=== PATIENT | male | born 1970 | race Caucasian/White ===

== ENCOUNTER 2017-02-21 23:24 | Emergency (ER) | payer OTHER | END 2017-02-22 04:45 | disposition home or self-care (01) | LOC: CED 23:24 | DX: F10.129 Alcohol abuse with intoxication, unspecified (principal); E11.9 Type 2 diabetes mellitus without complications; I10 Essential (primary) hypertension; F20.9 Schizophrenia, unspecified; F17.210 Nicotine dependence, cigarettes, uncomplicated; F31.9 Bipolar disorder, unspecified; Z88.0 Allergy status to penicillin | CPT/HCPCS: 36415; 99283; G0480 ==

== ENCOUNTER 2017-06-09 10:35 | Emergency (ER) | payer OTHER ==
[2017-06-10] MEDS ORDERED: GABAPENTIN800 MG PO (01:28)
[2017-06-10] MEDS ORDERED: ALBUTEROL20 ml (01:29)
[2017-06-10] MEDS ORDERED: ACCU-CHEK1 EAC2 (01:30)
[2017-06-10] MEDS ORDERED: MOTRIN600 MG PO (01:30)
== END 2017-06-09 11:24 | disposition left against medical advice (07) ==
LOC: CED 10:35
DX: R41.82 Altered mental status, unspecified (principal); E11.9 Type 2 diabetes mellitus without complications; I10 Essential (primary) hypertension; F31.9 Bipolar disorder, unspecified; F17.200 Nicotine dependence, unspecified, uncomplicated; Z88.0 Allergy status to penicillin
CPT/HCPCS: 99284

== ENCOUNTER 2017-06-09 12:04 | Emergency (ER) | payer OTHER ==
--- NOTE | ~2017-06-09 | CT71 ---
[facility] A Service [facility] RADIOLOGY TEXT RESULTS PATIENT: CHADD REAVES LOCATION: [facility] : 74 UNIT #: [id number] AGE: [address]: Michel Aceves DO SEX: M ORDER DR: [id number] [facility]. [place], [place] [address] [id number] MR#: [id number] Acc #: [id number] NAME: CHADD REAVES : 1970 SEX: M STUDY DATE/TIME: 06/09/2017 13:11 UNIT: [facility] ROOM: STUDY DESCRIPTION: CT Head Wo Contrast Attending Physician: Michel Aceves D.O. Ordering Physician: Michel Aceves D.O. Primary Care Physician: No Primary Care Physician MEDICAL IMAGING REPORT This report is preliminary unless electronic signature is present EXAM Head CT without contrast HISTORY Patient found down on the sidewalk today with complaint of diffuse headache. TECHNIQUE Axial images were obtained without contrast. This CT exam was performed with one or more of the following radiation dose reduction techniques: automatic exposure control, adjustment of mA and/or kV according to patient size, and iterative reconstruction. FINDINGS Ventricular size and configuration are normal. There is no evidence of acute infarct or hemorrhage. There are no extra-axial fluid collections. No mass lesion or mass effect is seen. There are no skull fractures. IMPRESSION Normal noncontrast head CT. Dictated by... Collin Jimenez M.D. THIS IS AN ELECTRONICALLY VERIFIED REPORT Collin Jimenez M.D. at 06/10/2017 9:36 AM SIMI/laura TD: 06/09/2017 18:13 JOB #: [id number] MEDICAL IMAGING REPORT [facility] A Service [facility] RADIOLOGY TEXT RESULTS PATIENT: CHADD REAVES LOCATION: [facility] : 74 UNIT #: [id number] AGE: [address]: Hottman,Michel M DO SEX: M ORDER DR: Page 1 of 1 COPY
--- NOTE | ~2017-06-09 | CR72 ---
[facility] A Service of [facility] & [facility] RADIOLOGY TEXT RESULTS PATIENT: CHADD REAVES LOCATION: [facility] : 74 UNIT #: [id number] AGE: [address]: Michel Aceves DO SEX: M ORDER DR: [id number] [facility] [address] [place], [place] [address] [id number] E MR#: [id number] Acc #: [id number] NAME: CHADD REAVES : 1970 SEX: M STUDY DATE/TIME: 06/09/2017 12:25 UNIT: [facility] ROOM: STUDY DESCRIPTION: CR Chest Single View Portable Attending Physician: Michel Aceves D.O. Ordering Physician: Michel Aceves D.O. Primary Care Physician: No Primary Care Physician MEDICAL IMAGING REPORT This report is preliminary unless electronic signature is present EXAM Chest, portable; 06/09/2017, 1225 hours. CLINICAL HISTORY Shortness of air, weakness today, overdose. COMPARISON 05/20/2017 FINDINGS Portable upright chest demonstrates heart size within normal limits. Aortic, mediastinal and hilar contours are normal. There is stable calcified granulomata. There is no evidence of pneumonia, edema or effusion. IMPRESSION No acute cardiopulmonary findings. No change from 05/20/2017. Dictated by... Phuong Rosen M.D. THIS IS AN ELECTRONICALLY VERIFIED REPORT Phuong Rosen M.D. at 06/10/2017 9:34 AM YOBANI/misha TD: 06/09/2017 17:44 JOB #: [id number] MEDICAL IMAGING REPORT Page 1 of 1 COPY
--- NOTE | ~2017-06-09 | EKG ---
PATIENT: CHADD REAVES UNIT #: [id number] Ventricular Rate: 90 BPM Atrial Rate: 90 BPM P-R Interval: 166 ms QRS Duration: 98 ms Q-T Interval: 364 ms QTC Calculation(Bezet): 445 ms P [place]: 67 degrees Calculated R [place]: 80 degrees Calculated T [place]: 47 degrees Diagnosis Line: Normal sinus rhythm Diagnosis Line: Left atrial enlargement Diagnosis Line: Otherwise normal ECG Diagnosis Line: No previous ECGs available Diagnosis Line: Confirmed by FABIEN BUCKNER MD ([id number]) on 06/11/2017 Diagnosis Line: 7:59:20 AM INTERPRETING MD: SITA GUZMAN
[2017-06-09 12:40] LABS: PARTIAL THROMBOPLASTIN TIME 23.6 SECONDS (23.5-31.3); PROTHROMBIN TIME (PATIENT) 10.4 SECONDS (10.0-11.7)
[2017-06-09 12:49] LABS: ALBUMIN SERUM 3.9 g/dL (3.5-5.0); ALKALINE PHOSPHATASE 65 U/L (32-92); ALT (SGPT) 17 U/L (10-40); AST (SGOT) 29 U/L (10-42); BILIRUBIN,TOTAL 0.5 mg/dL (0.2-2.0); BLOOD UREA NITROGEN 25 mg/dL (9-23); BUN/CREATININE RATIO 27.77; CALCIUM SERUM 8.8 mg/dL (8.4-10.2); CARBON DIOXIDE 25 mmol/L (22-31); CHLORIDE 105 mmol/L (100-111); CREATININE SERUM 0.9 mg/dL (0.6-1.4); GLOM FILT RATE Estimated 103.5 mL/min (>60); GLUCOSE FASTING 168 mg/dL (70-110); POTASSIUM 4.2 mmol/L (3.5-5.1); PROTEIN TOTAL SERUM 6.9 g/dL (6.0-8.3); SALICYLATE <4.0 mg/dL; SODIUM 136 mmol/L (135-145)
[2017-06-09 12:50] LABS: ACETAMINOPHEN <10 ug/mL; ALCOHOL BLOOD <5 mg/dL (0); BILIRUBIN, DIRECT <0.1 mg/dL (0.0-0.2); BILIRUBIN,INDIRECT 0.4 mg/dL (0.0-0.9)
[2017-06-09 12:54] LABS: POC - CKMB 2.1 ng/mL (0.0-7.9); POC - TROPONIN <0.05 ng/mL (<=0.05)
[2017-06-09 13:26] LABS: URINE SOURCE CLEAN CATCH
[2017-06-09 13:33] LABS: URINE APPEARANCE CLEAR; URINE BILIRUBIN NEG (NEG); URINE BLOOD NEG (NEG); URINE COLOR YELLOW; URINE GLUCOSE NEG (NEG); URINE KETONE NEG (NEG); URINE LEUKOCYTE ESTERASE NEG (NEG); URINE NITRATE NEG (NEG); URINE PROTEIN TRACE (NEG); URINE SPECIFIC GRAVITY 1.028 (1.003-1.035)
[2017-06-09 13:41] LABS: CULTURE INDICATED? NO
[2017-06-09 13:42] LABS: AMPHETAMINE NEG (NEG); BARBITURATES NEG (NEG); BENZODIAZEPINES NEG (NEG); COCAINE NEG (NEG); MARIJUANA NEG (NEG); OPIATES NEG (NEG); TRICYCLIC ANTIDEPRESSANTS NEG (NEG); U METHADONE NEG (NEG)
[2017-06-10] MEDS ORDERED: GABAPENTIN800 MG PO (01:28)
[2017-06-10] MEDS ORDERED: ALBUTEROL20 ml (01:29)
[2017-06-10] MEDS ORDERED: MOTRIN600 MG PO (01:30)
[2017-06-10] MEDS ORDERED: ACCU-CHEK1 EAC2 (01:30)
== END 2017-06-09 14:05 | disposition left against medical advice (07) ==
LOC: CED 12:04
PROVIDERS: Emergency Medicine
DX: T40.601A Poisoning by unspecified narcotics, accidental (unintentional), initial encounter (principal); E11.9 Type 2 diabetes mellitus without complications; I10 Essential (primary) hypertension; Z86.711 Personal history of pulmonary embolism; Z86.718 Personal history of other venous thrombosis and embolism; Z88.0 Allergy status to penicillin
CPT/HCPCS: 36415; 70450; 71010; 80048; 80076; 80307; 81003; 82553; 84484; 85610; 85730; 93005; 99285; G0480

== ENCOUNTER 2017-06-09 18:15 | Inpatient (IN) | payer OTHER ==
--- NOTE | ~2017-06-09 | CR72 ---
[facility] A Service of [facility] & [facility] RADIOLOGY TEXT RESULTS PATIENT: CHADD REAVES LOCATION: [facility] 55-01 : 74 UNIT #: [id number] AGE: [address]: Isabel Bowles MD SEX: M ORDER DR: [id number] [facility] [address] [place], [place] [address] [id number] I MR#: [id number] Acc #: [id number] NAME: CHADD REAVES : 1970 SEX: M STUDY DATE/TIME: 06/09/2017 18:56 UNIT: [facility] ROOM: [facility] STUDY DESCRIPTION: CR Chest Single View Portable Attending Physician: Isabel Bowles M.D. Ordering Physician: Julius Chan M.D. Primary Care Physician: Primary Care Physician No MEDICAL IMAGING REPORT This report is preliminary unless electronic signature is present EXAM Portable chest, 06/09/2017 HISTORY Chest pain today with altered mental status. FINDINGS A single AP portable view of the chest shows both lungs to be clear. The heart is normal in size. The mediastinal contour is normal. No significant bone abnormalities are seen. IMPRESSION Normal portable chest. Dictated by... Armen Mohr M.D. THIS IS AN ELECTRONICALLY VERIFIED REPORT Armen Mohr M.D. at 06/10/2017 2:19 PM KRT/cynthia TD: 06/10/2017 00:20 JOB #: [id number] MEDICAL IMAGING REPORT Page 1 of 1 COPY
--- NOTE | ~2017-06-09 | HP ---
Unit #: [id number] #: [id number] Patient: CHADD REAVES [id number] [facility]. [place], [place] [address] [id number] E MR#: [id number] NAME: CHADD REAVES ROOM: Age: 46 Sex: M Admission Date: 06/09/2017 : 1970 Attending Physician: Julius Chan M.D. Primary Care Physician: No Primary Care Physician HISTORY AND PHYSICAL REASON FOR ADMISSION Unresponsive mental status changes, drug overdose, atrial fibrillation with RVR. HISTORY OF PRESENT ILLNESS The patient is a 46-year-old male who was seen for the third time in the emergency room department for "unresponsive episodes." Initially, he was evaluated for first unresponsive episode early in the morning. He had received Narcan times several doses. Subsequently, became alert and oriented and elected to walk out AMA. When he left AMA, he had a second episode where he became unresponsive. CPR was started by a bystander as they stated that the patient became pulseless. He was eventually revived. Intraosseous access was obtained by EMS services when they arrived on the scene. The patient was brought to the ER through initial workup and laboratory studies were about to be started. Patient became more alert and decided to leave again for the second time. On the third visit, he was once again found unresponsive. EMS services were subsequently consulted and they brought patient to the hospital. At this point in time, we have placed him on a 72-hour hold. He is not alert and oriented to time, place, or person at the present time. On his second visit, a urine tox screen was attempted. However, he pulled a urine sample out of his pocket. He did not provide his own urine, and he was also noted when he went down for a CT head to have a pocket full of white powder. His urine tox screen was negative. However, at the present time he appears fairly obtunded, confused. It seems as though he likely has multiple medications and/or drugs in his system to which at the present time he is currently denying. PAST MEDICAL HISTORY Patient tells me he has troubles with his heart, possible heart arrhythmia followed by Dr. Bryant at [facility]. PAST SURGICAL HISTORY None. HOME MEDICATIONS None. ALLERGIES None, per patient. SOCIAL HISTORY Unit #: [id number] #: [id number] Patient: CHADD REAVES Positive tobacco use as evidenced by odor in room. Positive alcohol use as evidenced by odor in room and likely substance abuse although urine tox negative. Patient still has not been able to provide his own urine for sample. FAMILY HISTORY Reviewed, noncontributory and not able to be obtained secondary to his obtunded state. REVIEW OF SYSTEMS Please see HPI, limited secondary to current condition and/or obtunded state. PHYSICAL EXAMINATION VITAL SIGNS: Temperature 98.3, pulse 80, respiratory rate 16, blood pressure 112/73. GENERAL APPEARANCE: The patient is a confused, disoriented 46-year-old male lying comfortably in no acute distress. He is mumbling a few words at a time that are not comprehensible. HEENT: Head: Atraumatic, normocephalic. Ears: Tympanic membranes do not reveal erythema or injection. NECK: Supple. CARDIOVASCULAR: S1, S2. Tachycardia and irregularly irregular. RESPIRATORY: Poor air exchange noted. Anterior auscultation. GASTROINTESTINAL/ABDOMEN: Nontender, nondistended. EXTREMITIES: Lower extremities: No evidence of any lower extremity edema. No calf tenderness. NEUROLOGIC: The patient is A and O x0 at the present time. PSYCHIATRIC: The patient demonstrates normal mood and affect. He is cooperative at the present time. INITIAL IMPRESSION 1. Mental status changes, likely secondary to substance abuse and/or drug overdose. 2. Atrial fibrillation with rapid ventricular response noted on EKG in emergency room. PLAN 1. Admission telemetry floor. 2. Cardiac consult. 3. Routine electrolytes. 4. A 72-hour hold. 5. Copious IV fluids. 6. Behavioral control. 7. Symptom management. 8. Likely OLOP evaluation once cleared by cardiology. 9. At the present time, patient lacks insight into his overall disease process and is unable to comprehend the importance of substance cessation and/or alcohol cessation. Therefore, this will be addressed during hospital course as well as by OLOP evaluation. Further hospital course to follow. Dictated by Isabel Bowles M.D. Unit #: [id number] #: [id number] Patient: CHADD REAVES ISCatalina/lisa TD: 06/09/2017 19:23 JOB #: [id number] HISTORY AND PHYSICAL Page 1 of 1 X Isabel Bowles MD HISTORY AND PHYSICAL
--- NOTE | ~2017-06-09 | CO ---
Unit #: [id number] #: [id number] Patient: CHADD REAVES [id number] [facility] [address] [place], [place] [address] [id number] I MR#: [id number] NAME: CHADD REAVES ROOM: 55 Age: 46 Sex: M Admission Date: 06/09/2017 : 1970 Attending Physician: Isabel Bowles M.D. Primary Care Physician: No Primary Care Physician Consultation Date: 06/10/2017 CONSULTATION REPORT REASON FOR CONSULTATION Atrial fibrillation. HISTORY OF PRESENT ILLNESS The patient is a 46-year-old man who is known to Dr. Bryant. The patient has seen Dr. Bryant back in June of 2016 for paroxysmal atrial fibrillation. At that time, patient was admitted to [facility] for a suicide attempt from Seroquel. The patient then went into atrial flutter and [facility] Cardiology was consulted at that time. The patient has a past medical history of depression with multiple suicide attempts, paroxysmal atrial fibrillation, tobaccoism, and noncompliance. Yesterday, the patient was seen in the emergency department for "unresponsive episodes." Initially, the patient was evaluated for an unresponsive episode in the morning where he received Narcan multiple times and ultimately the patient became alert and oriented and left the hospital against medical advice. Later that day after he left medical advice, apparently he had another episode where he became unresponsive and CPR was started by a bystander. Patient was brought back to the emergency department where again he was treated with Narcan, became more alert and oriented, and left again. On the third visit, the patient was again found unresponsive and the patient was placed on a 72-hour hold. Patient was not compliant with a urine drug screen. Reportedly, he pulled a urine sample out of his pocket. An EKG was done and patient was found to be in atrial fibrillation with rapid ventricular rate in the 130s. Patient was started on a Cardizem drip and admitted for further workup. His point of care troponin was less than 0.05. PAST MEDICAL HISTORY 1. Paroxysmal atrial fibrillation diagnosed in June 2016. 2. History of amphetamine, cocaine, and marijuana abuse. 3. Tobaccoism. 4. COPD. 5. Depression/suicide attempt. PAST SURGICAL HISTORY None. ALLERGIES Penicillin. HOME MEDICATIONS 1. Gabapentin 800 mg p.o. three times daily. 2. Albuterol dose unknown. 3. Motrin 600 mg p.o. every six hours p.r.n. pain. Unit #: [id number] #: [id number] Patient: CHADD REAVES SOCIAL HISTORY Positive for tobacco and alcohol use. Prior consultation note indicates he has a history of methamphetamine abuse, marijuana, and cocaine abuse. Patient lives with his . FAMILY HISTORY His mother of a myocardial infarction at the age of 56, and his father of a SD at the age of 63. REVIEW OF SYSTEMS A 10-point review of systems was done and considered otherwise negative unless indicated in the HPI. PHYSICAL EXAMINATION GENERAL: The patient is awake, alert, in no acute distress. VITAL SIGNS: Temperature 98.5, heart rate 77, respirations 20, blood pressure 94/55. He is oxygenating 96%. HEENT: Head is atraumatic, normocephalic. Pupils equal, round, and reactive. Extraocular movements are intact. No drainage from ears or nares. NECK: Supple. Trachea is midline. Normal carotid upstrokes. No thyromegaly, lymphadenopathy is appreciated. CHEST: Lungs are clear to auscultation bilaterally. No wheezes, rales, or rhonchi. CARDIOVASCULAR: S1, S2. Irregular. ABDOMEN: Soft, nontender, nondistended. Bowel sounds are positive in all four quadrants. SKIN: Appears to be warm, dry, intact without any unusual rashes or lesions. EXTREMITIES: No clubbing, edema, or cyanosis. NEUROLOGIC: Patient is alert and oriented x3. He is conversant. DIAGNOSTIC STUDIES LABORATORY: White blood cells 8.6, hemoglobin 13.2, hematocrit 40.7, platelets 181,000. Sodium 140, potassium 3.8, chloride 110, CO2 of 25, BUN 17, creatinine 0.9, glucose 107. Point of care troponin less than 0.05. Lactic acid is 1. TSH 0.14. CARDIOVASCULAR: EKG shows atrial fibrillation. ASSESSMENT 1. Paroxysmal atrial fibrillation. 2. Hypothyroidism. 3. Polysubstance abuse. 4. Tobaccoism. 5. Positive family history of coronary artery disease. 6. Noncompliance. PLAN At this time, will add a lipid panel to patient's labs. Dr. Luu has seen the patient and will hold off on any other blood pressure medications secondary to his blood pressure being 90s over 50s. The patient is currently asymptomatic, could consider a small dose of metoprolol in the future if blood pressure is stable. Patient is not a candidate for anticoagulation. Unit #: [id number] #: [id number] Patient: CHADD REAVES Dictated by.Armand. Kylee Mcginnis A.P.R.N. for Tawanda Franklin TD: 06/10/2017 11:42 JOB #: [id number] CONSULTATION REPORT Page 1 of 1 X Kylee Mcginnis CLINICAL BUSINESS MANAGER X CONSULTATION REPORT
--- NOTE | ~2017-06-09 | EKG ---
PATIENT: CHADD REAVES UNIT #: [id number] Ventricular Rate: 132 BPM Atrial Rate: 113 BPM QRS Duration: 96 ms Q-T Interval: 324 ms QTC Calculation(Bezet): 480 ms Calculated R [place]: 84 degrees Calculated T [place]: 29 degrees Diagnosis Line: Atrial fibrillation with rapid ventricular Diagnosis Line: response Diagnosis Line: Incomplete right bundle branch block Diagnosis Line: Abnormal ECG Diagnosis Line: When compared with ECG of 09-JUN-2017 12:21, Diagnosis Line: (unconfirmed) Diagnosis Line: Atrial fibrillation has replaced Sinus rhythm Diagnosis Line: Confirmed by JERARDO DAVIS MD ([id number]) on Diagnosis Line: 06/11/2017 10:31:47 AM INTERPRETING MD: RYAN GUZMAN
[2017-06-09 19:06] LABS: BASOPHIL# 0.1 X10e3 (0-0.3); BASOPHIL% 0.6 % (0-2.5); EOSINOPHIL# 0.2 X10e3 (0-0.7); EOSINOPHIL% 1.6 % (0.0-7.0); HEMATOCRIT 42.5 % (38.0-50.0); HEMOGLOBIN 13.9 gm/dL (13.0-16.0); LYMPHOCYTE# 1.9 X10e3 (1.0-3.5); LYMPHOCYTE% 19.1 % (17.0-45.0); MEAN CELL VOLUME 90.7 FL (83-96); MEAN CORPUSCULAR HEMOGLOBIN 29.5 PG (28-34); MEAN CORPUSCULAR HGB CONC 32.6 g/dL (30-36); MEAN PLATELET VOLUME 8.7 FL (6.5-11.5); MONOCYTE# 0.8 X10e3 (0-1.0); MONOCYTE% 8.1 % (3.0-12.0); NEUTROPHIL# 6.9 X10e3 (1.5-7.1); NEUTROPHIL% 70.6 % (40-75); PLATELET COUNT 195 X10e3 (140-420); RED BLOOD COUNT 4.69 X10e (3.90-5.60); RED CELL DISTRIBUTION WIDTH 13.7 % (11.0-15.5); WHITE BLOOD COUNT 9.7 X10e3 (4.0-10.5)
[2017-06-09 19:08] LABS: DIFF IND NO
[2017-06-09 19:32] LABS: ALBUMIN SERUM 3.7 g/dL (3.5-5.0); ALKALINE PHOSPHATASE 65 U/L (32-92); ALT (SGPT) 18 U/L (10-40); AST (SGOT) 27 U/L (10-42); BILIRUBIN,TOTAL 0.6 mg/dL (0.2-2.0); BLOOD UREA NITROGEN 22 mg/dL (9-23); CALCIUM SERUM 9.2 mg/dL (8.4-10.2); CARBON DIOXIDE 27 mmol/L (22-31); CHLORIDE 107 mmol/L (100-111); GLOM FILT RATE Estimated 91.1 mL/min (>60); GLUCOSE FASTING 174 mg/dL (70-110); POTASSIUM 4.1 mmol/L (3.5-5.1); PROTEIN TOTAL SERUM 6.9 g/dL (6.0-8.3); SODIUM 139 mmol/L (135-145)
[2017-06-09 19:34] LABS: ALCOHOL BLOOD <5 mg/dL ([, 0]); BILIRUBIN, DIRECT <0.1 mg/dL (0.0-0.2); BILIRUBIN,INDIRECT 0.5 mg/dL (0.0-0.9)
[2017-06-09 19:43] LABS: URINE SOURCE CLEAN CATCH
[2017-06-09 19:48] LABS: URINE APPEARANCE CLEAR; URINE BILIRUBIN NEG (NEG); URINE BLOOD NEG (NEG); URINE COLOR YELLOW; URINE GLUCOSE NEG (NEG); URINE KETONE TRACE (NEG); URINE LEUKOCYTE ESTERASE NEG (NEG); URINE NITRATE NEG (NEG); URINE PROTEIN NEG (NEG); URINE SPECIFIC GRAVITY 1.029 (1.003-1.035)
[2017-06-09 19:53] LABS: CULTURE INDICATED? NO
[2017-06-09 19:58] LABS: AMPHETAMINE NEG (NEG); BARBITURATES NEG (NEG); BENZODIAZEPINES NEG (NEG); COCAINE NEG (NEG); MARIJUANA NEG (NEG); OPIATES NEG (NEG); TRICYCLIC ANTIDEPRESSANTS NEG (NEG); U METHADONE NEG (NEG)
[2017-06-10] MEDS ORDERED: GABAPENTIN800 MG PO (01:28)
[2017-06-10] MEDS ORDERED: ALBUTEROL20 ml (01:29)
[2017-06-10] MEDS ORDERED: MOTRIN600 MG PO (01:30)
[2017-06-10] MEDS ORDERED: ACCU-CHEK1 EAC2 (01:30)
[2017-06-10 05:25] LABS: HEMATOCRIT 40.7 % (38.0-50.0); HEMOGLOBIN 13.2 gm/dL (13.0-16.0); MEAN CORPUSCULAR HEMOGLOBIN 29.4 PG (28-34); MEAN CORPUSCULAR HGB CONC 32.4 g/dL (30-36); MEAN PLATELET VOLUME 8.5 FL (6.5-11.5); RED BLOOD COUNT 4.48 X10e (3.90-5.60); RED CELL DISTRIBUTION WIDTH 13.9 % (11.0-15.5); WHITE BLOOD COUNT 8.6 X10e3 (4.0-10.5)
[2017-06-10 06:15] LABS: ALBUMIN SERUM 3.2 g/dL (3.5-5.0); BILIRUBIN,TOTAL 0.5 mg/dL (0.2-2.0); BUN/CREATININE RATIO 18.88; CALCIUM SERUM 8.5 mg/dL (8.4-10.2); CREATININE SERUM 0.9 mg/dL (0.6-1.4); GLOM FILT RATE Estimated 103.5 mL/min (>60); MAGNESIUM 2.1 mg/dL (1.6-3.0); POTASSIUM 3.8 mmol/L (3.5-5.1); PROTEIN TOTAL SERUM 5.9 g/dL (6.0-8.3)
[2017-06-10 10:16] LABS: CHOLESTEROL 161 mg/dL (0-200); HDL CHOLESTEROL 37 mg/dL (29-75); LDL CHOLESTEROL 107 mg/dL ([, -130]); LDL/HDL RATIO 3 RATIO (0-4); TRIGLYCERIDES 87 mg/dL (10-160)
== END 2017-06-10 20:56 | disposition home or self-care (01) | DRG 917 ==
LOC: CED 18:15 → C5B 19:00 → CEDOF 19:00 → CED 19:09 → CEDOF 19:46 → C5B 19:46
PROVIDERS: Emergency Medicine; Family Medicine; Nurse Practitioner
DX: T65.91XA Toxic effect of unspecified substance, accidental (unintentional), initial encounter (principal); G92 Toxic encephalopathy; I48.91 Unspecified atrial fibrillation; F32.9 Major depressive disorder, single episode, unspecified; J44.9 Chronic obstructive pulmonary disease, unspecified; F17.210 Nicotine dependence, cigarettes, uncomplicated; Z91.5 Personal history of self-harm; Z88.0 Allergy status to penicillin; E03.9 Hypothyroidism, unspecified; Z91.19 Patient's noncompliance with other medical treatment and regimen; Z82.49 Family history of ischemic heart disease and other diseases of the circulatory system
CPT/HCPCS: 36415; 71010; 80048; 80053; 80061; 80076; 80307; 81003; 82607; 82947; 83605; 83735; 84443; 85025; 85027; 87040; 93005; 94760; 99285; C9113; G0480